=== PATIENT | female | born 1965 | race Caucasian/White ===

== ENCOUNTER 2017-07-22 10:45 | Emergency (ER) | payer OTHER ==
[2017-07-22 10:59] VITALS: TEMP 98.9
[2017-07-22 12:15] LABS: HCG,QUALITATIVE URINE NEGATIVE (NEGATIVE)
[2017-07-22 12:22] LABS: SQUAMOUS EPITHIAL 13 /hpf (0-5); URINE BACTERIA RARE (<OCC); URINE BILIRUBIN NEGATIVE (NEGATIVE); URINE BLOOD 1+ (NEGATIVE); URINE CLARITY Hazy (Clear); URINE COLOR Yellow (YELLOW); URINE GLUCOSE (UA) NORMAL (Normal); URINE LEUKOCYTE ESTERASE 2+ Leu/uL (Negative); URINE PROTEIN NEGATIVE (NEGATIVE); URINE UROBILINOGEN NORMAL mg/dL (0.2-1.0)
--- NOTE | 2017-07-22 12:44 | C.PDOC ---
History Of Present Illness 52 y/o female presents via ambulance for evaluation of low back pain. Patient states that 4 days ago she was walking and felt acute onset of pain to low back , [facility] in triage says she has chronic back pain for 1 year. No treatment or OTC meds since then. Patient denies any weakness, numbness, fever, or incontinence of bowel or bladder. BIBA due to back pain. No leg numbness/ weakness. Time Seen by Provider: 07/22/17 11:33 Chief Complaint (Nursing): Back Pain History Per: Patient History/Exam Limitations: no limitations Onset/Duration Of Symptoms: Days Current Symptoms Are (Timing): Still Present Past Medical History Reviewed: Historical Data, Nursing Documentation, Vital Signs Vital Signs: Last Vital Signs Temp 98.9 F 07/22/17 10:55 Pulse 84 07/22/17 10:55 Resp 18 07/22/17 10:55 BP 120/82 07/22/17 10:55 Pulse Ox 99 07/22/17 12:51 - Medical History PMH: HTN Family History: States: No Known Family Hx - Social History Hx Tobacco Use: No Hx Alcohol Use: No Hx Substance Use: No - Immunization History Hx Tetanus Toxoid Vaccination: No Hx Influenza Vaccination: No Hx Pneumococcal Vaccination: No Review Of Systems Except As Marked, All Systems Reviewed And Found Negative. Constitutional: Negative for: Fever, Chills Genitourinary: Negative for: Dysuria, Incontinence, Hematuria Musculoskeletal: Positive for: Back Pain Neurological: Negative for: Weakness, Numbness Physical Exam - Physical Exam Appears: No Acute Distress, Other (Morbidly obese) Skin: Normal Color, Warm, Dry Head: Atraumatic, Normacephalic Eye(s): bilateral: Normal Inspection, PERRL, EOMI Nose: Normal Oral Mucosa: Moist Neck: Normal ROM, Supple Chest: Symmetrical Cardiovascular: Rhythm Regular Respiratory: Normal Breath Sounds, No Other (respiratory distress) Back: Vertebral Tenderness (at the L2 region), Other (Patient complains of moderate to severe pain when attempting to move) Extremity: Bilateral: Atraumatic, Normal Color And Temperature, Normal ROM Neurological/Psych: Oriented x3, Normal Speech, Normal Cranial Nerves, Normal Motor, Normal Sensation, No Other (focal deficits) ED Course And Treatment O2 Sat by Pulse Oximetry: 99 (RA) Pulse Ox Interpretation: Normal - Other Rad LS spine X-Ray: Interpreted by Me ([email or web address]) Medical Decision Making Medical Decision Making: Impression: 52 y/o F with low back pain Time: 11:38 Initial Plan: * Tramadol 50 mg PO * X-ray lumbar spine * UA * Urine preg UA ordered and reviewed. Results discussed w/ patient. Counseled regarding diagnosis. lumbar strain/sprain no fx/disloc/comp fx on x-rays Disposition Doctor Will See Patient In The: Office Counseled Patient/Family Regarding: Studies Performed, Diagnosis - Disposition Disposition: HOME/ ROUTINE Disposition Time: 13:06 Condition: GOOD Forms: [employer] ([place]ian) - Clinical Impression Clinical Impression: Low back strain - Scribe Statement The provider has reviewed the documentation as recorded by the Scribe (Silvia Barrow) Provider Attestation: All medical record entries made by the Scribe were at my direction and personally dictated by me. I have reviewed the chart and agree that the record accurately reflects my personal performance of the history, physical exam, medical decision making, and the department course for this patient. I have also personally directed, reviewed, and agree with the discharge instructions and disposition.
--- NOTE | 2017-07-22 13:02 | RAD ---
PROCEDURE: Radiographs of the Lumbar Spine. HISTORY: back pain x 4 days, no trauma COMPARISON: No prior. FINDINGS: BONES: Normal alignment. No listhesis. No fracture. DISC SPACES: Unremarkable. OTHER FINDINGS: None. IMPRESSION: Unremarkable radiographs of the lumbar spine.
[2017-07-22 13:20] VITALS: BP 138/84; PULSE 85; RESP 16; O2SAT 98
== END 2017-07-22 13:19 | disposition home or self-care (01) ==
LOC: C.ER 10:45
DX: S39.012A Strain of muscle, fascia and tendon of lower back, initial encounter (principal); X50.0XXA Overexertion from strenuous movement or load, initial encounter; Y92.9 Unspecified place or not applicable